=== PATIENT | male | born 1970 | race Caucasian/White ===

== ENCOUNTER → 2017-04-25 | Outpatient (CLI) | payer OTHER ==
--- NOTE | ~2017-04-25 | CR63 ---
[facility] A Service of [facility] RADIOLOGY TEXT RESULTS PATIENT: ISIDORO CARROLL LOCATION: [facility] : 74 UNIT #: [id number] AGE: [address]: Darío Blair MD SEX: M ORDER DR: [id number] [address] [address] [id number] O MR#: [id number] Acc #: [id number] NAME: ISIDORO CARROLL : 1970 SEX: M STUDY DATE/TIME: 04/25/2017 11:30 UNIT: [facility] ROOM: STUDY DESCRIPTION: CR Chest 2 View Attending Physician: Darío Blair M.D. Referring Physician: Darío Blair M.D. Ordering Physician: Darío Blair M.D. Primary Care Physician: Darío Blair M.D. MEDICAL IMAGING REPORT This report is preliminary unless electronic signature is present EXAM Chest x-ray. HISTORY Chronic cough with shortness of breath for the past 2 months. TECHNIQUE Two views of the chest were obtained. FINDINGS PA and lateral examination of the chest upright shows a good expansion of the parenchyma with a normal distribution of the pulmonary vascularity. There is no indication of congestion, effusion, infiltrate, tumor, or nodular density. The pleural reflections and diaphragmatic contours are normal. The cardiac silhouette and mediastinal anatomy is within normal limits. IMPRESSION Normal chest. Dictated by... Elmer Chaidez M.D. THIS IS AN ELECTRONICALLY VERIFIED REPORT Elmer Chaidez M.D. at 04/25/2017 4:37 PM VIRIDIANAF/alexandru TD: 04/25/2017 15:53 JOB #: [id number] [facility] A Service of [facility] RADIOLOGY TEXT RESULTS PATIENT: ISIDORO CARROLL LOCATION: [facility] : 74 UNIT #: [id number] AGE: [address]: Darío Blair MD SEX: M ORDER DR: MEDICAL IMAGING REPORT Page 1 of 1 COPY
== END | disposition home or self-care (01) ==
LOC: CRAD 11:18
DX: R05 Cough (principal)
CPT/HCPCS: 71020

== ENCOUNTER 2017-06-19 09:32 | Emergency (ER) | payer OTHER ==
[~2017-06-19] VITALS: Ht 167.6 cm; Wt 70.3 kg
== END 2017-06-19 10:24 | disposition home or self-care (01) ==
LOC: CED 09:32
DX: R51 Headache (principal); Z98.890 Other specified postprocedural states
CPT/HCPCS: 96374; 96375; 99284; J1100; J1200; J1885; J2765